=== PATIENT | male | born 1940 | race Caucasian/White ===

== ENCOUNTER 2021-02-27 13:08 | Emergency (ER) | payer MEDICARE, OTHER ==
[~2021-02-27 13:08] MED LIST: MUCINEX DM ER1 EAC1 PO; VIBRAMYCIN100 MG PO
[2021-02-27 15:19] LABS: HEMOGLOBIN 13.4 gm/dl (14.0-17.5); RED BLOOD COUNT 4.45 M/UL (4.20-5.50); WHITE BLOOD COUNT 8.2 K/UL (4.5-11.0)
[2021-02-27] MEDS ORDERED: CHRONULAC20 GM/30 M PO (15:35)
[2021-02-27 15:36] LABS: BUN/CREATININE RATIO 30 (0-10)
== END 2021-02-27 16:34 | disposition home or self-care (01) ==
LOC: ER1 13:08
PROVIDERS: Preventive Medicine Occupational Medicine
DX: K59.00 Constipation, unspecified (principal); I25.10 Atherosclerotic heart disease of native coronary artery without angina pectoris
CPT/HCPCS: 72170; 74018; 80048; 85025; 99283; J7030